=== PATIENT | female | born 1970 | race Two or more races ===

== ENCOUNTER 2016-11-01 16:28 | Inpatient (IN) | payer OTHER ==
--- NOTE | ~2016-11-01 | CT4 ---
[facility] A Service of [facility] RADIOLOGY TEXT RESULTS PATIENT: MAURICIO WELLINGTON LOCATION: [facility] CICCU2-05 : 74 UNIT #: [id number] AGE: [address]: Ryan Fofana MD SEX: F ORDER DR: [id number] [facility] [address] [facility]. [place], [place] [address] [id number] E MR#: [id number] Acc #: [id number] NAME: MAURICIO WELLINGTON : 1970 SEX: F STUDY DATE/TIME: 11/01/2016 17:04 UNIT: [facility] ROOM: STUDY DESCRIPTION: CT Abd and Pelv Wo Cont Attending Physician: Cassie Parra P.A.-C. Ordering Physician: Cassie Parra P.A.-C. Primary Care Physician: Primary Care Physician No MEDICAL IMAGING REPORT This report is preliminary unless electronic signature is present EXAM CT abdomen and pelvis without IV contrast COMPARISON August 12, 2014 and October 26, 2012. INDICATIONS 46-year-old female with low back pain, abdominal cramping and flank pain as well as urinary incontinence for [address] exam was performed with one or more of the following radiation dose reduction techniques: Automatic exposure control, adjustment of mA and/or kV according to patient size, and iterative reconstruction. Axial CT imaging of the abdomen and pelvis was performed without IV contrast. Lack of IV contrast limits evaluation of adenopathy, vasculature and viscera. Small fat-containing inguinal hernias bilaterally. No acute fractures or suspicious osseous lesions. No acute findings in the imaged lower chest. Unenhanced liver is unremarkable. Prior cholecystectomy. Mild fatty replacement of the pancreas. Spleen and adrenal glands are within normal limits. Nonobstructive calculus in the right kidney. There is left perinephric stranding and moderate left hydronephrosis due to an obstructing calculus at the left ureteropelvic junction. This calculus measures 1.1 cm on axial series but on the coronal reformat, this measures up to 1.3 cm. There are 2 other nonobstructive calculi in the left kidney. There are no ureteral calculi. Urinary bladder is unremarkable. There has been prior hysterectomy. No adnexal masses. No evidence of bowel obstruction. The appendix is stool-filled and appears mildly distended, measuring up to 9 mm in caliber, as compared to it measuring up to 7 mm in caliber previously. There are no secondary signs to suggest an acute appendicitis. There is no fluid filling of the appendix. There is no free fluid or STS. [facility] A Service of [facility] RADIOLOGY TEXT RESULTS PATIENT: MAURICIO WELLINGTON [address] [birth year] UNIT #: [id number] AGE: [address]: Ryan Fofana MD SEX: F ORDER DR: pneumoperitoneum. Abdominal aorta is normal in caliber. There are multiple left-sided retroperitoneal lymph nodes, largest of which measures up to 1 cm, short axis, at the level of the kidney. These are likely reactive given ongoing left hydronephrosis. These lymph nodes are likely not appreciably changed from July 2014. IMPRESSION 1. Severe left hydronephrosis due to an obstructing 1.3 cm calculus in the proximal left ureter near the ureteropelvic junction. There are also bilateral nonobstructive renal calculi. 2. The appendix is mildly distended but is stool filled, currently measuring up to 9 mm in caliber as compared to 7 mm in 2015. This is a nonspecific finding. There are no secondary findings to suggest an acute appendicitis but clinical correlation is recommended. 3. Small, fat-containing inguinal hernias bilaterally. 4. Grossly stable left-sided retroperitoneal lymph nodes at the level of the left kidney, likely reactive. Dictated by... Ty Orellana M.D. THIS IS AN ELECTRONICALLY VERIFIED REPORT Ty Orellana M.D. at 11/02/2016 5:24 PM PERCY/ilya TD: 11/01/2016 20:40 JOB #: [id number] MEDICAL IMAGING REPORT Page 1 of 1 COPY
--- NOTE | ~2016-11-01 | CO ---
Unit #: [id number] #: [id number] Patient: MAURICIO WELLINGTON [id number] [address] [place], [place] [address] [id number] I MR#: [id number] NAME: MAURICIO WELLINGTON ROOM: [facility] Age: 46 Sex: F Admission Date: 11/01/2016 : 1970 Attending Physician: Ryan Fofana M.D. Primary Care Physician: No Primary Care Physician Consultation Date: 11/01/2016 CONSULTATION REPORT REASON FOR CONSULTATION 1. Left ureteral stone. 2. Acute pyelonephritis. HISTORY OF PRESENT ILLNESS The patient is a 46-year-old female who presented to the emergency room with a three day history of left flank pain. The severity of the left flank pain was 10 out of 10 at its worse, it is currently 5 out of 10. It is not relieved by anything. She also had a fever at home to 102.6. She has had nausea, she has had vomiting. She has a previous history of nephrolithiasis. She is undergoing stent placement followed by ureteroscopy in the past. PAST MEDICAL HISTORY 1. Cervical cancer. 2. Nephrolithiasis. PAST SURGICAL HISTORY 1. Cholecystectomy. 2. Hysterectomy. 3. Cystoscopy and left stent placement. 4. Left ureteroscopy. MEDICATIONS Medications at home - none. ALLERGIES Codeine, aspirin, tamsulosin. FAMILY HISTORY Positive for kidney stones. SOCIAL HISTORY Negative for alcohol, negative for tobacco. REVIEW OF SYSTEMS Ten point review of systems was performed and was negative except for left flank pain, fever, stress urinary incontinence and gross hematuria. PHYSICAL EXAMINATION VITAL SIGNS: T-max here at [place] is 100.6, T-current 98.8. Blood pressure 102/65, pulse 72, respirations 20. GENERAL: She is a mildly obese female in no acute distress. She is alert and oriented x3. Unit #: [id number] #: [id number] Patient: MAURICIO WELLINGTON HEENT: Normocephalic, atraumatic. Extraocular movements are intact. NECK: Supple. There is no lymphadenopathy, there is no nuchal rigidity. LUNGS: She is breathing comfortably with normal air movement and her chest is normal to palpation. ABDOMINAL EXAM: Soft, nontender, nondistended. EXAM: Camacho catheter in place that is draining clear urine. EXTREMITIES: Radial pulses and femoral pulses are 2+. She is moving all extremities well. She has no clubbing, cyanosis or edema. DIAGNOSTIC STUDIES LABORATORY: Labs were reviewed and were significant for white blood cell count of 17,000 and creatinine of 1.0. Urinalysis - 2+ leukocyte esterase positive, nitrate negative, 5-10 white blood cells and 5-10 red blood cells. IMAGING: CT scan of the abdomen and pelvis was reviewed personally by me and shows a 1 cm left proximal ureteral stone. She had some small non-obstructing stones. ASSESSMENT AND PLAN Left proximal ureteral stone with hydronephrosis, urinary tract infection, acute pyelonephritis and early sepsis syndrome. The risks, benefits and alternatives to cystoscopy and left stent placement including bleeding, infection, damage to adjacent structures, need for further surgery, need for nephrostomy tube, worsening sepsis and all the perioperative risks were discussed with the patient. She is being taken emergently to the operating room for the above procedure. She will be fluid resuscitated. She has been given Rocephin and tobramycin. Blood cultures and urine cultures are pending. She is at increased risk because of her sepsis for her surgical procedure but this is an emergent procedure and she has the risk of if it is not performed. Dictated by... Ryan Fofana M.D. KEEGAN/noe TD: 11/02/2016 08:23 JOB #: [id number] CONSULTATION REPORT Page 1 of 1 X Ryan Fofana MD X CONSULTATION REPORT
--- NOTE | ~2016-11-01 | BMI ---
[facility] Nutrition Therapy DATE: 11/02/16 Patient: MAURICIO Kaminski AMISH Physician: ELLE Address: [address] [place] [address] Room/Bed: [address], Zip: [place] [address] Admit Date: 11/01/16 Date of : 74 Height: 5 0 Weight: 210 95.25 HIGH BMI NOTE: DX: PT IS 46 Y.O. FEMALE ADMITTED FOR UTI, ACUTE CYSTITIS ANTHROPOMETRICS: 5'0", WT: 209# (95 KG), BMI: 40.8 DIET: REGULAR INTERVENTION: 1. REGULAR DIET RECOMMENDATIONS: 1. RECOMMEND TO CHANGE CURRENT DIET ORDER TO HH TO PROMOTE GRADUAL WEIGHT LOSS TOWARDS HEALTHY BMI (19.0-25.0) OR +/-10%IBW RD WILL F/U PER PROTOCOL Respectfully, FROY SANTOS MS, RD, LD Food and Nutritional Services [facility] cc: client file
--- NOTE | ~2016-11-01 | EKG ---
PATIENT: MAURICIO WELLINGTON UNIT #: [id number] Ventricular Rate: 71 BPM Atrial Rate: 71 BPM P-R Interval: 136 ms QRS Duration: 84 ms Q-T Interval: 370 ms QTC Calculation(Bezet): 402 ms P [place]: 29 degrees Calculated R [place]: 50 degrees Calculated T [place]: 39 degrees Diagnosis Line: Normal sinus rhythm Diagnosis Line: Normal ECG Diagnosis Line: When compared with ECG of 01-MAY-2016 11:16, Diagnosis Line: No significant change was found Diagnosis Line: Confirmed by SHAD WHALEN MD ([id number]) on 11/02/2016 Diagnosis Line: 8:04:22 PM INTERPRETING MD: KOBY MÁRQUEZ
--- NOTE | ~2016-11-01 | OR ---
Unit #: [id number] #: [id number] Patient: MAURICIO BOYD [id number] [address] [place], [place] [address] [id number] Brendon MR#: [id number] NAME: MAURICIO BOYD ROOM: [facility] Date of Procedure: 11/01/2016 Admission Date: 11/01/2016 Surgeon: Ryan Fofana M.D. : 1970 Attending Physician: Ryan Fofana M.D. Primary Care Physician: No Primary Care Physician PROCEDURE OPERATIVE NOTE PREOPERATIVE DIAGNOSIS 1. Left ureteral stone. 2. Urosepsis. POSTOPERATIVE DIAGNOSIS 1. Left ureteral stone. 2. Urosepsis. PROCEDURES PERFORMED 1. Cystoscopy. 2. Left retrograde pyelogram. 3. Interpretation of left retrograde pyelogram. 4. Left 6-[place] by 24 cm double J stent, no string attached. 5. Simple Camacho catheter placement. ANESTHESIA General. INDICATION FOR PROCEDURE Mr. Boyd is a pleasant 46-year-old female with a left 1 cm UPJ stone, white blood cell count of 17,000, fever to 102 at home and hypotension with a blood pressure in the 90s. She was emergently taken to the operating room for the above procedure. The risks, benefits and alternatives including bleeding, infection, damage to adjacent structures, need for further surgery, need for nephrostomy tube, worsening sepsis and all other risk were discussed with the patient and informed consent was obtained. She wishes to proceed. PROCEDURE The patient was taken to the operating suite and properly identified. After the application of satisfactory general anesthetic the patient was placed in the dorsal lithotomy position. All pressure points were padded to the satisfaction of the surgical, anesthetic and nursing team. Her genitalia were prepped and draped in the usual sterile fashion. I passed a 22-[place] cystoscope. She had a large cystocele defect. There were cracks and status changes in the bladder. I identified the left ureteral orifice. I passed a 0.035 sensory wire. The stone was clearly visible at the UPJ. I was able to manipulate the wire by the stone and I passed a poly catheter past the wire. There was a hydronephrotic drip. This was sent as culture. I gently injected contrast and shot a left retrograde pyelogram. Interpretations are as follows. INTERPRETATION OF LEFT RETROGRADE PYELOGRAM Unit #: [id number] #: [id number] Patient: MAURICIO BOYD There was moderate to severe hydroureteronephrosis down to the proximal ureter. No contrast drained beyond this. There appears to be a single collecting system. I replaced the wire. I passed a 6-[place] x 24 cm double J stent which coiled in the renal pelvis and the bladder. There was no string attached. The bladder was emptied. The scope was removed. A 20-[place] Camacho catheter was placed. The patient tolerated the procedure well without complication. She was transported stable and still intubated to the PACU. Dictated by... Ryan Fofana M.D. MDP/gz TD: 11/02/2016 08:23 JOB #: [id number] PROCEDURE OPERATIVE NOTE Page 1 of 1 X Ryan Fofana MD X PROCEDURE OPERATIVE NOTE
--- NOTE | ~2016-11-01 | CO ---
Unit #: [id number] #: [id number] Patient: MAURICIO WELLINGTON [id number] [address] [place], [place] [address] [id number] I MR#: [id number] NAME: MAURICIO WELLINGTON ROOM: [facility] Age: 46 Sex: F Admission Date: 11/01/2016 : 1970 Attending Physician: Ryan Fofana M.D. Primary Care Physician: No Primary Care Physician Consultation Date: 11/02/2016 CONSULTATION REPORT REASON FOR CONSULT ICU management. HISTORY OF PRESENT ILLNESS This is a very pleasant, 46-year-old, female with past medical history significant for recurrent cholelithiasis, GERD, and cervical cancer who presented to the emergency room with sudden onset of abdominal pain that started 3 days ago and it was persistent, but it was progressing to the point she needed to be seen in the emergency room. She described it as sharp and aching in the lower part of her abdomen and sometimes she was feeling it in her back. She also had decreased appetite and nausea, but no vomiting. She denied any fever, but had chills and sweating. Patient also stated that she is well known to snore at night and she had witnessed apnea. She also is complaining of coughing mainly after she talks. Patient is well known to have kidney stones. PAST MEDICAL HISTORY 1. GERD. 2. Cervical cancer. 3. Nephrolithiasis. PAST SURGICAL HISTORY 1. Hysterectomy. 2. Lithotripsy. SOCIAL HISTORY Patient never smoked. No history of alcohol or drug abuse. FAMILY HISTORY Asthma. REVIEW OF SYSTEMS Twelve-point review of systems was obtained and was negative, except for what was mentioned in HPI. PHYSICAL EXAMINATION GENERAL: Patient currently appears more comfortable compared to yesterday she presented. VITAL SIGNS: Her blood pressure is 118/62, but it was hypotensive throughout the night; heart rate 82; respiratory rate 19; and O2 saturation 98% on 2 liters nasal cannula. Unit #: [id number] #: [id number] Patient: MAURICIO WELILNGTON HEENT: Atraumatic and normocephalic. EOMI. NECK: Supple. No JVD. No lymphadenopathy. CHEST: Clear to auscultation bilaterally. HEART: S1 and S2. No murmurs, gallops, or rubs. ABDOMEN: Soft and nontender. Bowel sounds positive. No hepatosplenomegaly. EXTREMITIES: No edema or cyanosis. SKIN: No rashes. 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 No focal motor/sensory deficit. DIAGNOSTIC STUDIES LABORATORY: Creatinine 0.7, chloride 113, and lactic acid 1.9. White blood count 17.1 and hemoglobin 12.3. IMAGING: CT abdomen and pelvis was noted by me. ASSESSMENT 1. Hypertension. 2. Nephrolithiasis. 3. Chronic anemia. 4. Morbid obesity. 5. Loud obstructive sleep apnea. PLAN 1. Currently, patient's blood pressure is 118/62. She was persistently hypotensive throughout the night, but her blood pressure responded nicely to multiple IV fluid boluses and a short period of Levophed. Likely, the etiology of her hypotension is related to anesthesia and postop. 2. Continue IV hydration and reassess. 3. Antibiotics per urology. 4. Status post cystoscopy and kidney stone removal. 5. DVT and GI prophylaxes. 6. Patient will need a sleep study as an outpatient per Dr. Dominguez. She also may need an ENT exam to rule out any vocal dysfunction. Time spent on this consult is 32 minutes. Dictated by... Funmi Patino M.D. EA/ariadna TD: 11/02/2016 09:31 JOB #: [id number] Unit #: [id number] #: [id number] Patient: MAURICIO WELLINGTON CONSULTATION REPORT Page 1 of 1 X FUNMI LI MD CONSULTATION REPORT
[~2016-11-01 16:28] MED LIST: BACTRIM DS TABL1 TA2 PO; BENTYL20 M1 PO; CIPRO PO; HEARTBURN150 MG; HYDROCODON-ACE1 EAC5 PO; IBUPROFEN800 MG PO; KEFLEX500 MG PO; LORTAB 10-5001 EACH PO; MOTRIN600 M2; NO MEDICATIONS; NORCO 10-325 TA1 TAB PO; PHENERGAN25 M1 PO; PHENERGAN25 MG; PYRIDIUM PO; ULTRAM PO; VOLTAREN75 MG PO
[2016-11-01 16:31] LABS: BASOPHIL# 0.1 X10e3 (0-0.3); BASOPHIL% 0.3 % (0-2.5); EOSINOPHIL% 0.2 % (0.0-7.0); HEMATOCRIT 38.3 % (35.0-45.0); HEMOGLOBIN 12.3 gm/dL (12.0-16.0); LYMPHOCYTE# 1.3 X10e3 (1.0-3.5); LYMPHOCYTE% 7.5 % (17.0-45.0); MEAN CELL VOLUME 87.5 FL (83-96); MEAN CORPUSCULAR HEMOGLOBIN 28.2 PG (28-34); MEAN CORPUSCULAR HGB CONC 32.3 g/dL (30-36); MEAN PLATELET VOLUME 8.3 FL (6.5-11.5); MONOCYTE# 1.1 X10e3 (0-1.0); MONOCYTE% 6.7 % (3.0-12.0); NEUTROPHIL# 14.5 X10e3 (1.5-7.1); NEUTROPHIL% 85.3 % (40-75); PLATELET COUNT 316 X10e3 (140-420); RED BLOOD COUNT 4.37 X10e (3.90-5.30); RED CELL DISTRIBUTION WIDTH 13.2 % (11.0-15.5); WHITE BLOOD COUNT 17.1 X10e3 (4.0-10.5)
[2016-11-01 16:35] LABS: DIFF IND YES
[2016-11-01 16:50] LABS: ALBUMIN SERUM 3.8 g/dL (3.5-5.0); BILIRUBIN, DIRECT 0.1 mg/dL (0.0-0.2); BILIRUBIN,INDIRECT 0.4 mg/dL (0.0-0.9); BILIRUBIN,TOTAL 0.5 mg/dL (0.2-2.0); CALCIUM SERUM 9.5 mg/dL (8.4-10.2); GLOM FILT RATE Estimated 68.5 mL/min (>60); PLATELET ESTIMATE NORMAL (NORMAL); PROTEIN TOTAL SERUM 7.3 g/dL (6.0-8.3)
[2016-11-01 17:46] LABS: URINE APPEARANCE CLEAR; URINE BILIRUBIN NEG (NEG); URINE BLOOD NEG (NEG); URINE COLOR YELLOW; URINE GLUCOSE NEG (NEG); URINE KETONE 1+ (NEG); URINE LEUKOCYTE ESTERASE 2+ (NEG); URINE NITRATE NEG (NEG); URINE PROTEIN NEG (NEG); URINE SPECIFIC GRAVITY 1.014 (1.003-1.035)
[2016-11-01 17:51] LABS: CULTURE INDICATED? YES; URINE BACTERIA AUWI 1+ (NEGATIVE); URINE SQUAMOUS EPITHELIAL CELL FEW /[HPF]
[2016-11-01 17:53] LABS: URINE SOURCE CLEAN CATCH
[2016-11-02 04:01] LABS: BASOPHIL# 0.1 X10e3 (0-0.3); BASOPHIL% 0.7 % (0-2.5); EOSINOPHIL# 0.1 X10e3 (0-0.7); EOSINOPHIL% 0.9 % (0.0-7.0); HEMATOCRIT 31.6 % (35.0-45.0); HEMOGLOBIN 10.1 gm/dL (12.0-16.0); LYMPHOCYTE# 2.5 X10e3 (1.0-3.5); LYMPHOCYTE% 22.3 % (17.0-45.0); MEAN CELL VOLUME 88.6 FL (83-96); MEAN CORPUSCULAR HEMOGLOBIN 28.3 PG (28-34); MEAN PLATELET VOLUME 8.3 FL (6.5-11.5); MONOCYTE# 1.4 X10e3 (0-1.0); MONOCYTE% 12.7 % (3.0-12.0); NEUTROPHIL# 7.2 X10e3 (1.5-7.1); NEUTROPHIL% 63.4 % (40-75); PLATELET COUNT 250 X10e3 (140-420); RED BLOOD COUNT 3.56 X10e (3.90-5.30); RED CELL DISTRIBUTION WIDTH 13.5 % (11.0-15.5); WHITE BLOOD COUNT 11.4 X10e3 (4.0-10.5)
[2016-11-02 04:02] LABS: DIFF IND NO
[2016-11-02 04:33] LABS: BUN/CREATININE RATIO 8.57; CALCIUM SERUM 8.1 mg/dL (8.4-10.2); CREATININE SERUM 0.7 mg/dL (0.6-1.4); GLOM FILT RATE Estimated 105.4 mL/min (>60); POTASSIUM 4.1 mmol/L (3.5-5.1)
[2016-11-03] MEDS ORDERED: LORTAB 5-325 M1 EACH PO (09:53)
[2016-11-03] MEDS ORDERED: BACTRIM DS TAB1 EACH PO (09:54)
== END 2016-11-03 11:32 | disposition home or self-care (01) | DRG 872 ==
LOC: CED 16:28 → CEDOF 19:05 → CPACUOF 21:15 → CICCU2 11-02 06:21 → C2A 11-02 17:54
PROVIDERS: Physician Assistant; Urology
PROC: 0T778DZ Dilation of Left Ureter with Intraluminal Device, Via Natural or Artificial Opening Endoscopic (ICD-10-PCS; principal; 2016-11-01 20:30)
DX: A41.9 Sepsis, unspecified organism (principal); E66.01 Morbid (severe) obesity due to excess calories; N13.2 Hydronephrosis with renal and ureteral calculous obstruction; K21.9 Gastro-esophageal reflux disease without esophagitis; Z90.710 Acquired absence of both cervix and uterus; G47.33 Obstructive sleep apnea (adult) (pediatric); D64.9 Anemia, unspecified; N81.10 Cystocele, unspecified
CPT/HCPCS: 36415; 74176; 80048; 80076; 81003; 83605; 83690; 85025; 87040; 87086; 93005; 94760; 96374; 96375; 99285; C2617; J0696; J1200; J1650; J2250; J2270; J2405; J2550; J3010; J3260

== ENCOUNTER 2016-11-08 21:24 | Emergency (ER) | payer OTHER ==
--- NOTE | ~2016-11-08 | CT4 ---
[facility] A Service of [facility] RADIOLOGY TEXT RESULTS PATIENT: MAURICIO WELLINGTON LOCATION: [facility] : 74 UNIT #: [id number] AGE: [address]: Nas Roldan DO SEX: F ORDER DR: [id number] [facility] [address] [place], [place] [address] [id number] E MR#: [id number] Acc #: [id number] NAME: MAURICIO WELLINGTON : 1970 SEX: F STUDY DATE/TIME: 11/08/2016 22:15 UNIT: [facility] ROOM: STUDY DESCRIPTION: CT Abd and Pelv Wo Cont Attending Physician: Nas Roldan D.O. Ordering Physician: Nas Roldan D.O. MEDICAL IMAGING REPORT This report is preliminary unless electronic signature is present EXAM Abdomen and pelvis CT no contrast 11/08/2016 INDICATIONS Hematuria. Lower abdominal pain. Kidney stent placement 11/01/2016. TECHNIQUE Noncontrast abdomen and pelvis CT was performed. This CT exam was performed with one or more of the following radiation dose reduction techniques: automatic exposure control, adjustment of mA and/or kV according to patient size, and iterative reconstruction. COMPARISON STUDIES 11/01/2016. FINDINGS Exam markedly degraded by noncontrast technique. There is minimal atelectasis in the lung bases. No effusion or pericardial effusion. Aorta demonstrates no aneurysm. Spleen and adrenal glands are unremarkable. The pancreas is unremarkable and the gallbladder is surgically absent. The liver is unremarkable. 2 mm non-obstructing stone present in the right kidney. The right ureter is unremarkable. There is a left ureteral stent. The proximal loop is at the level of the mid-pole collecting system left kidney and the distal loop is at the level of the bladder. Intimately associated with the proximal loop of the ureteral stent, there is an approximately 13 mm stone present. When compared to the prior CT, there has been interval decrease and hydronephrosis and inflammatory change of the left kidney. Tiny sand-like non-obstructing stone is present in the lower pole collecting [facility] A Service of [facility] & [facility] RADIOLOGY TEXT RESULTS PATIENT: MAURICIO WELLINGTON LOCATION: [facility] : [birth year] UNIT #: [id number] AGE: [address]: Nas Roldan DO SEX: F ORDER DR: system of the left kidney. CT PELVIS: Bladder otherwise unremarkable. There is no drainable fluid collection in the pelvis or free fluid in the pelvis. The bowel demonstrates no inflammatory change or obstruction and the appendix is normal. There are tiny inguinal hernias that contain fat only. The uterus is surgically absent. No suspicious bone lesion. IMPRESSION 1. Interval placement of a new left ureteral stent that appears to be in satisfactory position. Interval decrease in hydronephrosis and inflammatory change and edema of the left kidney compared to the prior study. 2. Intimately associated with the proximal loop of the stent is a 13 mm stone. 3. Additional tiny non-obstructing stones bilaterally. 4. The appendix is normal and the gallbladder is surgically absent, along with the uterus. Dictated by... Justin Mullen M.D. THIS IS AN ELECTRONICALLY VERIFIED REPORT Justin Mullen M.D. at 11/09/2016 5:13 PM OLAMIDE/elizabeth TD: 11/08/2016 23:52 JOB #: [id number] MEDICAL IMAGING REPORT Page 1 of 1 COPY
[2016-11-08 19:58] LABS: URINE SOURCE CLEAN CATCH
[2016-11-08 20:11] LABS: URINE APPEARANCE CLOUDY; URINE BILIRUBIN NEG (NEG); URINE BLOOD 3+ (NEG); URINE COLOR ORANGE; URINE GLUCOSE NEG (NEG); URINE KETONE NEG (NEG); URINE LEUKOCYTE ESTERASE 1+ (NEG); URINE NITRATE NEG (NEG); URINE PH 6.5 (5-8); URINE PROTEIN 2+ (NEG)
[2016-11-08 20:14] LABS: CULTURE INDICATED? YES; URBCS1 AUWI INNUM /[HPF] (0-2); URINE BACTERIA AUWI NEG (NEGATIVE); URINE SQUAMOUS EPITHELIAL CELL FEW /[HPF]
[2016-11-08 21:42] LABS: BASOPHIL# 0.1 X10e3 (0-0.3); BASOPHIL% 0.8 % (0-2.5); EOSINOPHIL# 0.1 X10e3 (0-0.7); EOSINOPHIL% 1.5 % (0.0-7.0); HEMOGLOBIN 12.2 gm/dL (12.0-16.0); LYMPHOCYTE% 37.9 % (17.0-45.0); MEAN CELL VOLUME 86.4 FL (83-96); MEAN CORPUSCULAR HEMOGLOBIN 28.4 PG (28-34); MEAN CORPUSCULAR HGB CONC 32.9 g/dL (30-36); MEAN PLATELET VOLUME 8.7 FL (6.5-11.5); MONOCYTE% 12.3 % (3.0-12.0); NEUTROPHIL# 3.7 X10e3 (1.5-7.1); NEUTROPHIL% 47.5 % (40-75); PLATELET COUNT 317 X10e3 (140-420); RED BLOOD COUNT 4.28 X10e (3.90-5.30); RED CELL DISTRIBUTION WIDTH 14.1 % (11.0-15.5); WHITE BLOOD COUNT 7.8 X10e3 (4.0-10.5)
[2016-11-08 21:43] LABS: DIFF IND NO
[2016-11-08 22:31] LABS: ALBUMIN SERUM 4.1 g/dL (3.5-5.0); BILIRUBIN,TOTAL 0.3 mg/dL (0.2-2.0); BUN/CREATININE RATIO 16.66; CALCIUM SERUM 9.9 mg/dL (8.4-10.2); CREATININE SERUM 0.9 mg/dL (0.6-1.4); GLOM FILT RATE Estimated 77.8 mL/min (>60); POTASSIUM 4.4 mmol/L (3.5-5.1); PROTEIN TOTAL SERUM 7.5 g/dL (6.0-8.3)
== END 2016-11-08 23:39 | disposition home or self-care (01) ==
LOC: CED 21:24
PROVIDERS: Emergency Medicine
DX: G89.18 Other acute postprocedural pain (principal); R10.9 Unspecified abdominal pain; Z90.49 Acquired absence of other specified parts of digestive tract; Z88.6 Allergy status to analgesic agent; Z88.5 Allergy status to narcotic agent
CPT/HCPCS: 36415; 74176; 80053; 81003; 83690; 84703; 85025; 87086; 96374; 99284; J2405

== ENCOUNTER → 2016-11-08 | Outpatient (CLI) | payer OTHER ==
[~2016-11-08] MED LIST changes: +BACTRIM DS TAB1 EACH PO; +LORTAB 5-325 M1 EACH PO
--- NOTE | ~2016-11-08 | CR7 ---
[facility] A Service of [facility] RADIOLOGY TEXT RESULTS PATIENT: MAURICIO WELLINGTON LOCATION: [facility] : 74 UNIT #: [id number] AGE: [address]: Ryan Fofana MD SEX: F ORDER DR: [id number] [place] [address] [facility]. [place], [place] [address] [id number] O MR#: [id number] Acc #: [id number] NAME: MAURICIO WELLINGTON : 1970 SEX: F STUDY DATE/TIME: 11/08/2016 15:00 UNIT: [facility] ROOM: STUDY DESCRIPTION: CR Abdomen Single AP View Attending Physician: Ryan Fofana M.D. Referring Physician: Ryan Fofana M.D. Ordering Physician: Ryan Fofana M.D. Primary Care Physician: No Primary Care Physician MEDICAL IMAGING REPORT This report is preliminary unless electronic signature is present EXAM Abdomen, single AP view. INDICATION Renal stones. FINDINGS Since prior CT, patient has undergone placement of a double-J ureteral stent. It appears to be appropriately positioned. The patient does have a stone seen near the proximal stent measuring up to about 1.6 cm in size. There is probably a tiny stone also located on the right. I do not see any distal stones. IMPRESSION Interval placement of the double-J ureteral stent. The patient has a persistent stone seen adjacent to the proximal aspect of the stent measuring up to about 1.6 cm in size. Another stone is suspected within the right kidney as well. Dictated by... Marlene Golden M.D. THIS IS AN ELECTRONICALLY VERIFIED REPORT Marlene Golden M.D. at 11/09/2016 10:37 AM AFF/santosh TD: 11/08/2016 19:48 JOB #: [id number] [facility] A Service [facility] RADIOLOGY TEXT RESULTS PATIENT: MAURICIO WELLINGTON LOCATION: [facility] #: [id number] : [birth year] UNIT #: [id number] AGE: [address]: Ryan Fofana MD SEX: F ORDER DR: MEDICAL IMAGING REPORT Page 1 of 1 COPY
== END | disposition home or self-care (01) ==
LOC: CRAD 14:50
DX: N13.30 Unspecified hydronephrosis (principal); N20.0 Calculus of kidney
CPT/HCPCS: 74000

== ENCOUNTER 2016-11-22 17:43 | Inpatient (IN) | payer OTHER ==
--- NOTE | ~2016-11-22 | CR4 ---
[facility] A Service of [facility] RADIOLOGY TEXT RESULTS PATIENT: MAURICIO WELLINGTON LOCATION: [place] [address] : [birth year] UNIT #: [id number] AGE: [address]: Sreekanth Becerra MD SEX: F ORDER DR: [id number] [facility] [address] [facility]. [place], [place] [address] [id number] E MR#: [id number] Acc #: [id number] NAME: MAURICIO WELLINGTON : 1970 SEX: F STUDY DATE/TIME: 11/22/2016 18:31 UNIT: [facility] ROOM: STUDY DESCRIPTION: CR Abdomen Flat Upright or Dec Attending Physician: Nas Roldan D.O. Ordering Physician: Nas Roldan D.O. Primary Care Physician: No Primary Care Physician MEDICAL IMAGING REPORT This report is preliminary unless electronic signature is present EXAM Abdomen, flat and upright, 2 views. DATE OF EXAM 11/22/2016 HISTORY Generalized abdominal pain for 3 days with frequent urination for 1 week and fever. FINDINGS 2 views of the abdomen demonstrate nonspecific bowel gas pattern with no evidence of bowel obstruction or free air. Left ureteral stent is in place with the proximal aspect in the region of the left renal pelvis and the distal aspect of the region of the bladder. There are no abnormal abdominal calcifications. Surgical clips right upper quadrant suggest prior cholecystectomy. IMPRESSION Negative abdomen. Dictated by... Derrick Cook M.D. THIS IS AN ELECTRONICALLY VERIFIED REPORT Derrick Cook M.D. at 11/23/2016 2:19 PM KRT/santosh TD: 11/22/2016 20:40 JOB #: [id number] MEDICAL IMAGING REPORT [facility] A Service [facility] RADIOLOGY TEXT RESULTS PATIENT: MAURICIO WELLINGTON LOCATION: [place] [address] : [birth year] UNIT #: [id number] AGE: [address]: Sreekanth Becerra MD SEX: F ORDER DR: Page 1 of 1 COPY
--- NOTE | ~2016-11-22 | CT4 ---
[facility] A Service of [facility] & [facility] RADIOLOGY TEXT RESULTS PATIENT: MAURICIO WELLINGTON [facility] 466- : 74 UNIT #: [id number] AGE: [address]: Sreekanth Becerra MD SEX: F ORDER DR: [id number] [facility] [address] [place], [place] [address] [id number] I MR#: [id number] #: [id number] NAME: MAURICIO WELLINGTON : 1970 SEX: F STUDY DATE/TIME: 11/22/2016 22:11 [facility]IT[facility] ROOM: [facility] STUDY DESCRIPTION: CT Abd and Pelv Wo Cont Attending Physician: Sreekanth Becerra M.D. Ordering Physician: Sreekanth Becerra M.D. Primary Care Physician: Primary Care Physician No MEDICAL IMAGING REPORT This report is preliminary unless electronic signature is present EXAM CT scan of the abdomen and pelvis without contrast, 11/22/2016 HISTORY Fever today with urinary tract infection; lower abdominal pain for 1 year, worsening today. TECHNIQUE Spiral CT was performed through the abdomen and pelvis without oral or intravenous contrast administration using renal stone protocol. This CT exam was performed with one or more of the following radiation dose reduction techniques: Automatic exposure control, adjustment of mA and/or kV according to patient size, and iterative reconstruction. FINDINGS ABDOMEN: There is no obstructing renal or ureteral calculus. There are nonobstructing renal stones bilaterally. There is a left ureteral stent in place with the proximal end of the stent in the left renal pelvis and the distal aspect in the bladder. There is inflammatory stranding surrounding the left kidney. Correlate clinically for possible pyelonephritis. The liver, spleen, pancreas and adrenal glands are normal. The gallbladder is surgically absent. PELVIS FINDINGS: The gut, mesenteric and audrey structures are normal. There is no free fluid in the abdomen or pelvis. The lung bases are normal. IMPRESSION 1. No obstructing renal or ureteral calculus. 2. Nonobstructing renal stones bilaterally. 3. Left ureteral stent is in place with the proximal end in the left renal pelvis and the distal end in the bladder. Mild prominence of the left renal collecting system is noted. There is inflammatory STS. [facility] A Service of [facility] & [facility] RADIOLOGY TEXT RESULTS PATIENT: MAURICIO WELLINGTON [facility] 466-01 : 74 UNIT #: [id number] AGE: [address]: Sreekanth Becerra MD SEX: F ORDER DR: stranding in the left perinephric fat. This is a nonspecific finding. Correlate clinically for possible pyelonephritis, given patient history. 4. Surgical absence of the gallbladder. Dictated by... Derrick Cook M.D. THIS IS AN ELECTRONICALLY VERIFIED REPORT Derrick Cook M.D. at 11/23/2016 2:19 PM KRT/psc TD: 11/23/2016 00:46 JOB #: [id number] MEDICAL IMAGING REPORT Page 1 of 1 COPY
--- NOTE | ~2016-11-22 | CR72 ---
[facility] A Service of [facility] RADIOLOGY TEXT RESULTS PATIENT: MAURICIO WELLINGTON LOCATION: [place] [address] : [birth year] UNIT #: [id number] AGE: [address]: Sreekanth Becerra MD SEX: F ORDER DR: [id number] [facility] [address] [place], [place] [address] [id number] MR#: [id number] Acc #: [id number] NAME: MAURICIO WELLINGTON : 1970 SEX: F STUDY DATE/TIME: 11/22/2016 18:29 UNIT: [facility] ROOM: STUDY DESCRIPTION: CR Chest Single View Portable Attending Physician: Nas Roldan D.O. Ordering Physician: Nas Roldan D.O. Primary Care Physician: No Primary Care Physician MEDICAL IMAGING REPORT This report is preliminary unless electronic signature is present EXAM Portable chest. DATE OF EXAM 11/22/2016 HISTORY Cough and fever today with abdominal pain for 3 days. FINDINGS A single AP portable view of the chest shows both lungs to be clear. The heart is normal in size. The mediastinal contour is normal. No significant bone abnormalities are seen. IMPRESSION Normal portable chest. Dictated by... Derrick Cook M.D. THIS IS AN ELECTRONICALLY VERIFIED REPORT Derrick Cook M.D. at 11/23/2016 2:19 PM FLASH/santosh TD: 11/22/2016 20:34 JOB #: [id number] MEDICAL IMAGING REPORT Page 1 of 1 COPY
--- NOTE | ~2016-11-22 | DS ---
Unit #: [id number] #: [id number] Patient: MAURICIO WELLINGTON [id number] [address] [place], [place] [address] [id number] I MR#: [id number] NAME: MAURICIO WELLINGTON. ROOM: [facility] Age: 46 Sex: F Admission Date: 11/22/2016 : 1970 Discharge Date: 11/25/2016 Attending Physician: Sreekanth Becerra M.D. Referring Physician: Anuj Lopez M.D. Primary Care Physician: No Primary Care Physician DISCHARGE SUMMARY PRIMARY DIAGNOSIS Pyelonephritis. OTHER DIAGNOSIS Vancomycin allergy. DISPOSITION Home. FOLLOWUP Followup for cystoscopy, stent removal with Dr. Fofana this week. DISCHARGE MEDICATIONS Same as admission medications plus Bactrim double strength one twice daily for 10 days. HISTORY This patient had ESWL for a 1 cm proximal left ureteral stone and underwent stent placement ESWL one week prior to admission. Unfortunately on return for stent removal, she had developed fever, chills, and a temperature of 102 degrees, presenting first to the emergency department instead. HOSPITAL COURSE Patient was admitted and evaluated with WBC elevated at 16.7. CT scan of the abdomen and pelvis stone protocol showing good stent position. No hydronephrosis and very small nonobstructing renal calculi. She was given a dose of vancomycin but had severe upper body itching, more than typical for red man syndrome and thought to be a true allergy. She also had Zosyn and this was changed by Dr. Fofana to cefepime given her E. coli history in the past. She did indeed have a documented fever on admission up to 103.2 degrees within the first day and she was afebrile completely for 36 hours after that. I saw her the day before discharge and she was very comfortable complaining only of the catheter. She was observed an additional day. At which point, her WBC was normal. Additionally, no fever. Final urine culture mixed species of gram positives consistent with contamination. Blood cultures preliminary negative. She is thus discharged on an empirically chosen antibiotic as she is thought to have been on a fluoroquinolone briefly around the ESWL. Disposition and followup as noted. Unit #: [id number] #: [id number] Patient: AMISHMAURICIO. Abrahan Blue/jaden TD: 11/26/2016 09:30 JOB #: [id number] DISCHARGE SUMMARY Page 1 of 1 X Anuj Lopez MD X DISCHARGE SUMMARY
--- NOTE | ~2016-11-22 | HP ---
Unit #: [id number] #: [id number] Patient: MAURICIO WELLINGTON [id number] [address] [place], [place] [address] [id number] MR#: [id number] NAME: MAURICIO WELLINGTON. ROOM: [facility] Age: 46 Sex: F Admission Date: 11/22/2016 : 1970 Attending Physician: Sreekanth Becerra M.D. Primary Care Physician: No Primary Care Physician HISTORY AND PHYSICAL REASON FOR ADMISSION Acute left pyelonephritis. CHIEF COMPLAINT Fevers. HISTORY OF PRESENT ILLNESS The patient is a 46-year-old female who has a history of a left 1 cm proximal ureteral stone. She underwent stent placement followed by left ESWL which was one week ago. She did well initially but began developing fevers and chills to 102 yesterday. She presented to the emergency room. She has had nausea, she has not had vomiting. PAST MEDICAL HISTORY 1. Nephrolithiasis. 2. Gastroesophageal reflux disease. 3. Cervical cancer. PAST SURGICAL HISTORY 1. Ureteroscopy. 2. Cysto stent placement. 3. Left ESWL. 4. Hysterectomy. SOCIAL HISTORY Negative for tobacco, negative for alcohol. FAMILY HISTORY Positive for asthma. REVIEW OF SYSTEMS Twelve point review of systems was obtained and pertinent findings are left flank pain, fever to 102 and nausea. PHYSICAL EXAMINATION VITAL SIGNS: Maximum temperature is 102.1, T-current 100.4, blood pressure 103/64, pulse 99. GENERAL: This is a well developed, female in no acute distress. HEENT: Normocephalic, atraumatic. NECK: Supple. No lymphadenopathy. CHEST: Respirations are unlabored. ABDOMEN: Soft and nondistended with left CVA tenderness. EXTREMITIES: Radial pulses with regular rate and rhythm. No clubbing, cyanosis or edema. Unit #: [id number] #: [id number] Patient: MAURICIO WELLINGTON DIAGNOSTIC STUDIES LABORATORY: White blood cell count yesterday evening was 16.7, creatinine was 0.9. Blood and urine cultures are pending. IMAGING: Noncontrasted CT scan of the abdomen and pelvis was reviewed independently. There was no hydronephrosis. The left stent is in good position. There are very small nonobstructing renal calculi. ASSESSMENT AND PLAN Left pyelonephritis, status post a left extracorporeal shockwave lithotripsy. Stent remains in place. We will check blood and urine cultures. I will switch her Zosyn to cefepime as her last positive culture was E. coli. We will place her on Lovenox for prophylaxis. We will encourage ambulation as well as incentive spirometry. She will have stent removal after her pyelonephritis is treated. Dictated by Ryan Fofana M.D. KEEGAN/noe TD: 11/23/2016 07:43 JOB #: [id number] HISTORY AND PHYSICAL Page 1 of 1 X Ryan Fofana MD X HISTORY AND PHYSICAL
[2016-11-22 17:29] LABS: URINE SOURCE CLEAN CATCH
[2016-11-22 17:40] LABS: URINE APPEARANCE SL CLOUDY; URINE BILIRUBIN NEG (NEG); URINE BLOOD 4+ (NEG); URINE COLOR YELLOW; URINE GLUCOSE NORM (NORM); URINE KETONE NEG (NEG); URINE LEUKOCYTE ESTERASE 2+ (NEG); URINE NITRATE NEG (NEG); URINE PROTEIN 1+ (NEG); URINE SPECIFIC GRAVITY 1.015 (1.003-1.035); URINE UROBILINOGEN NORM (NORM)
[2016-11-22 17:48] LABS: URBCS1 AUWI 50-100 /[HPF] (0-2)
[2016-11-22 17:49] LABS: CULTURE INDICATED? YES; URINE BACTERIA AUWI 1+ (NEGATIVE); URINE SQUAMOUS EPITHELIAL CELL OCCAS /[HPF]
[2016-11-22 17:52] LABS: BASOPHIL% 0.2 % (0-2.5); EOSINOPHIL% 0.1 % (0.0-7.0); HEMATOCRIT 39.7 % (35.0-45.0); HEMOGLOBIN 13.3 gm/dL (12.0-16.0); LYMPHOCYTE# 1.1 X10e3 (1.0-3.5); LYMPHOCYTE% 6.5 % (17.0-45.0); MEAN CELL VOLUME 86.1 FL (83-96); MEAN CORPUSCULAR HEMOGLOBIN 28.9 PG (28-34); MEAN CORPUSCULAR HGB CONC 33.5 g/dL (30-36); MEAN PLATELET VOLUME 9.1 FL (6.5-11.5); MONOCYTE# 1.7 X10e3 (0-1.0); MONOCYTE% 10.2 % (3.0-12.0); NEUTROPHIL# 13.9 X10e3 (1.5-7.1); PLATELET COUNT 208 X10e3 (140-420); RED BLOOD COUNT 4.61 X10e (3.90-5.30); RED CELL DISTRIBUTION WIDTH 14.1 % (11.0-15.5); WHITE BLOOD COUNT 16.7 X10e3 (4.0-10.5)
[2016-11-22 17:54] LABS: DIFF IND YES
[2016-11-22 18:00] LABS: ALBUMIN SERUM 4.5 g/dL (3.5-5.0); BILIRUBIN, DIRECT 0.1 mg/dL (0.0-0.2); BILIRUBIN,INDIRECT 0.9 mg/dL (0.0-0.9); CALCIUM SERUM 10.3 mg/dL (8.4-10.2); CREATININE SERUM 0.9 mg/dL (0.6-1.4); GLOM FILT RATE Estimated 77.8 mL/min (>60)
[2016-11-22 18:13] LABS: PLATELET ESTIMATE NORMAL (NORMAL)
[2016-11-22 18:14] LABS: RBC NORMAL YES
[2016-11-22 18:44] LABS: INFLUENZA A NEG (NEG); INFLUENZA B NEG (NEG)
[2016-11-24 03:00] LABS: HEMATOCRIT 33.5 % (35.0-45.0); MEAN CELL VOLUME 87.2 FL (83-96); MEAN CORPUSCULAR HEMOGLOBIN 27.9 PG (28-34); MEAN PLATELET VOLUME 9.8 FL (6.5-11.5); RED BLOOD COUNT 3.84 X10e (3.90-5.30); RED CELL DISTRIBUTION WIDTH 14.4 % (11.0-15.5); WHITE BLOOD COUNT 14.9 X10e3 (4.0-10.5)
[2016-11-24 03:21] LABS: HEMOGLOBIN 10.7 gm/dL (12.0-16.0)
[2016-11-24 03:33] LABS: BUN/CREATININE RATIO 8.88; CREATININE SERUM 0.9 mg/dL (0.6-1.4); GLOM FILT RATE Estimated 77.8 mL/min (>60); POTASSIUM 4.3 mmol/L (3.5-5.1)
[2016-11-24 22:29] LABS: URINE APPEARANCE CLEAR; URINE BILIRUBIN NEG (NEG); URINE BLOOD 1+ (NEG); URINE COLOR YELLOW; URINE GLUCOSE NEG (NEG); URINE KETONE NEG (NEG); URINE LEUKOCYTE ESTERASE 3+ (NEG); URINE NITRATE NEG (NEG); URINE PH 7.5 (5-8); URINE PROTEIN NEG (NEG)
[2016-11-24 22:32] LABS: URINE BACTERIA AUWI NEG (NEGATIVE); URINE SQUAMOUS EPITHELIAL CELL FEW /[HPF]; UWBCS1 AUWI 25-50 (0-5)
[2016-11-24 22:50] LABS: URINE MUCUS PRESENT
[2016-11-25 04:06] LABS: BASOPHIL% 0.4 % (0-2.5); EOSINOPHIL# 0.3 X10e3 (0-0.7); EOSINOPHIL% 2.8 % (0.0-7.0); HEMATOCRIT 33.3 % (35.0-45.0); HEMOGLOBIN 10.8 gm/dL (12.0-16.0); LYMPHOCYTE# 2.6 X10e3 (1.0-3.5); LYMPHOCYTE% 23.3 % (17.0-45.0); MEAN CELL VOLUME 87.4 FL (83-96); MEAN CORPUSCULAR HEMOGLOBIN 28.4 PG (28-34); MEAN CORPUSCULAR HGB CONC 32.5 g/dL (30-36); MEAN PLATELET VOLUME 9.5 FL (6.5-11.5); MONOCYTE# 1.8 X10e3 (0-1.0); MONOCYTE% 15.9 % (3.0-12.0); NEUTROPHIL# 6.3 X10e3 (1.5-7.1); NEUTROPHIL% 57.6 % (40-75); PLATELET COUNT 122 X10e3 (140-420); RED BLOOD COUNT 3.81 X10e (3.90-5.30); RED CELL DISTRIBUTION WIDTH 14.4 % (11.0-15.5)
[2016-11-25 04:08] LABS: DIFF IND NO
[2016-11-25 04:32] LABS: BUN/CREATININE RATIO 7.5; CALCIUM SERUM 9.1 mg/dL (8.4-10.2); CREATININE SERUM 0.8 mg/dL (0.6-1.4); GLOM FILT RATE Estimated 89.7 mL/min (>60); POTASSIUM 4.3 mmol/L (3.5-5.1)
[2016-11-25] MEDS ORDERED: BACTRIM DS TAB1 EACH PO (15:57)
== END 2016-11-25 17:30 | disposition home or self-care (01) | DRG 690 ==
LOC: CED 17:43 → CEDOF 20:36 → C4C 11-23 00:19
PROVIDERS: Emergency Medicine; Urology
DX: N10 Acute pyelonephritis (principal); K21.9 Gastro-esophageal reflux disease without esophagitis; Z90.49 Acquired absence of other specified parts of digestive tract; Z90.710 Acquired absence of both cervix and uterus; Z85.41 Personal history of malignant neoplasm of cervix uteri
CPT/HCPCS: 36415; 71010; 74020; 74176; 80048; 80076; 80202; 81003; 83605; 85025; 85027; 86850; 86900; 86901; 87040; 87086; 87804; 96365; 96375; 99285; J0692; J1650; J2405; J2543; J3370